=== PATIENT | female | born 1955 | race Two or more races ===

== ENCOUNTER 2023-09-03 15:00 | Outpatient (RCR) | payer MEDICARE, OTHER, SELFPAY | END 2023-09-03 23:59 | disposition home or self-care (01) | LOC: RPT 15:00 | PROVIDERS: ATTENDING PHYSICIAN Radiology Radiation Oncology; FAMILY PHYSICIAN Family Medicine | DX: I89.8 Other specified noninfective disorders of lymphatic vessels and lymph nodes (principal); C50.911 Malignant neoplasm of unspecified site of right female breast; R29.3 Abnormal posture; Z73.6 Limitation of activities due to disability | CPT/HCPCS: 97110; 97140; 97162 ==

== ENCOUNTER → 2023-10-15 06:31 | Day surgery (SDC) | payer MEDICARE, OTHER, SELFPAY | LOC: GI 06:31 | PROVIDERS: ATTENDING PHYSICIAN Internal Medicine Gastroenterology; FAMILY PHYSICIAN Family Medicine | DX: Z12.11 Encounter for screening for malignant neoplasm of colon (principal); K64.8 Other hemorrhoids; K22.2 Esophageal obstruction; R13.10 Dysphagia, unspecified; Z80.0 Family history of malignant neoplasm of digestive organs | CPT/HCPCS: 45378; 43249 ==

== ENCOUNTER 2023-10-20 09:47 | Outpatient (RCR) | payer MEDICARE, OTHER, SELFPAY | END 2023-10-20 23:59 | disposition home or self-care (01) | LOC: RPT 09:47 | PROVIDERS: ATTENDING PHYSICIAN Radiology Radiation Oncology; FAMILY PHYSICIAN Family Medicine | DX: I97.2 Postmastectomy lymphedema syndrome (principal); C50.911 Malignant neoplasm of unspecified site of right female breast; Z73.6 Limitation of activities due to disability; R29.3 Abnormal posture | CPT/HCPCS: 97110; 97112; 97140; 97164; 97530; 97535 ==

== ENCOUNTER 2023-11-19 11:33 | Outpatient (RCR) | payer MEDICARE, OTHER, SELFPAY | END 2023-11-19 23:59 | disposition home or self-care (01) | LOC: RPT 11:33 | PROVIDERS: ATTENDING PHYSICIAN Radiology Radiation Oncology; FAMILY PHYSICIAN Family Medicine | DX: I97.2 Postmastectomy lymphedema syndrome (principal); C50.911 Malignant neoplasm of unspecified site of right female breast; I89.8 Other specified noninfective disorders of lymphatic vessels and lymph nodes; Z73.6 Limitation of activities due to disability; R29.3 Abnormal posture | CPT/HCPCS: 97110; 97112; 97164; 97530 ==

== ENCOUNTER 2023-12-10 15:02 | Outpatient (RCR) | payer MEDICARE, OTHER, SELFPAY | END 2023-12-10 23:59 | disposition home or self-care (01) | LOC: RPT 15:02 | PROVIDERS: ATTENDING PHYSICIAN Radiology Radiation Oncology; FAMILY PHYSICIAN Family Medicine | DX: I97.2 Postmastectomy lymphedema syndrome (principal); C50.911 Malignant neoplasm of unspecified site of right female breast; Z73.6 Limitation of activities due to disability; R29.3 Abnormal posture | CPT/HCPCS: 97110; 97530 ==

== ENCOUNTER 2024-01-02 11:14 | Outpatient (RCR) | payer MEDICARE, OTHER, SELFPAY | END 2024-01-02 23:59 | disposition home or self-care (01) | LOC: RPT 11:14 | PROVIDERS: ATTENDING PHYSICIAN Radiology Radiation Oncology; FAMILY PHYSICIAN Family Medicine | DX: I97.2 Postmastectomy lymphedema syndrome (principal); C50.911 Malignant neoplasm of unspecified site of right female breast; I89.8 Other specified noninfective disorders of lymphatic vessels and lymph nodes; Z73.6 Limitation of activities due to disability; R29.3 Abnormal posture | CPT/HCPCS: 97110; 97530 ==

== ENCOUNTER 2024-08-18 14:45 | Outpatient (RCR) | payer MEDICARE, OTHER, SELFPAY | END 2024-08-18 23:59 | disposition home or self-care (01) | LOC: RPT 14:45 | PROVIDERS: ATTENDING PHYSICIAN Obstetrics & Gynecology; FAMILY PHYSICIAN Family Medicine | DX: R32 Unspecified urinary incontinence (principal); Z73.6 Limitation of activities due to disability | CPT/HCPCS: 97110; 97112; 97161; 97530 ==

== ENCOUNTER 2024-09-22 08:58 | Outpatient (RCR) | payer MEDICARE, OTHER, SELFPAY | END 2024-09-22 23:59 | disposition home or self-care (01) | LOC: RPT 08:58 | PROVIDERS: ATTENDING PHYSICIAN Obstetrics & Gynecology; FAMILY PHYSICIAN Family Medicine | DX: R32 Unspecified urinary incontinence (principal); Z73.6 Limitation of activities due to disability; M62.81 Muscle weakness (generalized); Z85.3 Personal history of malignant neoplasm of breast | CPT/HCPCS: 97110; 97112 ==

== ENCOUNTER 2024-10-04 09:49 | Outpatient (RCR) | payer MEDICARE, OTHER, SELFPAY | END 2024-10-04 23:59 | disposition home or self-care (01) | LOC: RPT 09:49 | PROVIDERS: ATTENDING PHYSICIAN Obstetrics & Gynecology; FAMILY PHYSICIAN Family Medicine | DX: R32 Unspecified urinary incontinence (principal); Z73.6 Limitation of activities due to disability; M62.81 Muscle weakness (generalized); Z85.3 Personal history of malignant neoplasm of breast | CPT/HCPCS: 97110; 97112 ==

== ENCOUNTER 2024-10-26 12:08 | Outpatient (RCR) | payer MEDICARE, OTHER, SELFPAY | END 2024-10-26 23:59 | disposition home or self-care (01) | LOC: RPT 12:08 | PROVIDERS: ATTENDING PHYSICIAN Obstetrics & Gynecology; FAMILY PHYSICIAN Family Medicine | DX: R32 Unspecified urinary incontinence (principal); Z73.6 Limitation of activities due to disability; M62.81 Muscle weakness (generalized); Z85.3 Personal history of malignant neoplasm of breast | CPT/HCPCS: 97110; 97112 ==

== ENCOUNTER 2025-04-26 06:27 | Outpatient (RCR) | payer MEDICARE, OTHER, SELFPAY | END 2025-04-26 23:59 | disposition home or self-care (01) | LOC: RPT 06:27 | PROVIDERS: ATTENDING PHYSICIAN Physician Assistant Medical; FAMILY PHYSICIAN Family Medicine | DX: I97.2 Postmastectomy lymphedema syndrome (principal); C50.911 Malignant neoplasm of unspecified site of right female breast; Z73.6 Limitation of activities due to disability; I89.8 Other specified noninfective disorders of lymphatic vessels and lymph nodes; Z90.11 Acquired absence of right breast and nipple | CPT/HCPCS: 97163; 97530 ==